=== PATIENT | female | born 1975 | race Caucasian/White ===

== ENCOUNTER 2019-06-06 10:05 | Emergency (ER) | payer BC ==
[2019-06-06] MEDS ORDERED: SODIUM CHLORIDE 0.9% 1,000 ML IV STA (10:59)
[2019-06-06] MEDS ORDERED: ONDANSETRON 4 MG/2 ML VIAL IVP STA (10:59)
[2019-06-06] MEDS ORDERED: KETOROLAC 30 MG/ML 1 ML VIAL IVP STA (10:59)
--- NOTE | 2019-06-06 11:11 | ED ---
Abdominal Pain HPI - General Chief Complaint: Abdominal Pain Stated Complaint: Abdominal pain Time Seen by Provider: 06/06/19 10:42 Source: patient Mode of arrival: ambulatory Limitations: no limitations - History of Present Illness Initial Comments: Patient is a 43-year-old female presents emergency Department with chief complaint of right lower quadrant abdominal pain. Patient reports she developed a sudden onset of right lower quadrant abdominal pain yesterday which she was able to control somewhat with ibuprofen. Patient reports she woke up this morning and pain continued. She states the pain is waxing and waning and sharp in nature. She does report nausea but no vomiting. Does report decreased appetite. Denies any diarrhea or constipation. States the pain is not related to by mouth intake. Denies increased urgency or frequency or dysuria. Denies hematuria, hematochezia or melena. States she went to the primary care who sent her to the ED for CT imaging to rule out appendicitis. Denies back pain chest pain or shortness of breath. - Related Data Allergies Allergy/AdvReac Type Severity Reaction Status Date / Time No Known Allergies Allergy Verified 06/06/19 10:29 Review of Systems ROS Statement: Those systems with pertinent positive or pertinent negative responses have been documented in the HPI. ROS Other: All systems not noted in ROS Statement are negative. Past Medical History Past Medical History: Hyperlipidemia, Thyroid Disorder Additional Past Medical History / Comment(s): hypothyroidism migraines History of Any Multi-Drug Resistant Organisms: None Reported Past Surgical History: Back Surgery, Section Past Psychological History: Anxiety, Depression Smoking Status: Current every day smoker Past Alcohol Use History: Occasional Past Drug Use History: None Reported General Exam Limitations: no limitations General appearance: alert, in no apparent distress Head exam: Present: atraumatic, normocephalic, normal inspection Eye exam: Present: normal appearance Pupils: Present: normal accommodation ENT exam: Present: normal exam, normal oropharynx, mucous membranes moist, TM's normal bilaterally, normal external ear exam Neck exam: Present: normal inspection, full ROM Respiratory exam: Present: normal lung sounds bilaterally Cardiovascular Exam: Present: regular rate, normal rhythm, normal heart sounds GI/Abdominal exam: Present: soft, tenderness (McBurney point tenderness. Positive obturator and psoas. Negative Rovsing. Right lower quadrant tenderness.). Absent: distended, guarding, rebound, rigid, mass, bruit, pulsatile mass, hernia Extremities exam: Present: normal inspection, full ROM Back exam: Present: normal inspection, full ROM. Absent: CVA tenderness (R), CVA tenderness (L) Neurological exam: Present: alert, oriented X3 Psychiatric exam: Present: normal affect, normal mood Skin exam: Present: warm, dry, intact, normal color Course Vital Signs 06/06/19 06/06/19 06/06/19 10:24 10:30 11:30 Temperature 98.5 F Pulse Rate 88 70 Respiratory 18 20 16 Rate Blood Pressure 127/80 122/69 O2 Sat by Pulse 98 100 Oximetry 06/06/19 06/06/19 12:00 12:22 Temperature 98.2 F Pulse Rate 68 75 Respiratory 16 16 Rate Blood Pressure 134/60 111/68 O2 Sat by Pulse 100 100 Oximetry Medical Decision Making - Medical Decision Making Patient is a 43-year-old female presenting to the emergency department with chief complaint of right lower quadrant pain. Patient sent to the ED from PCP to rule out appendicitis. On exam patient does have all signs positive appendicitis except for Rovsing. Does have nausea no vomiting diarrhea. CBC shows normal white count. CMP unremarkable. UA shows no signs of urinary tract infection. CT of abdomen and pelvis shows no signs of acute appendicitis. Hepatomegaly noted. Patient was given IV fluids, Zofran and Toradol. Reevaluation patient does report improvement in her symptoms. She informed me after that recently they have been moving to a different house in [place]. I do suspect this is more muscular skeletal. Patient advised to follow-up with primary care. Advised to alternate between Tylenol and Motrin for pain control. Advised to return to emergency department if symptoms worsen. - Lab Data Result diagrams: 06/06/19 11:05 06/06/19 11:05 Lab Results 06/06/19 06/06/19 06/06/19 Range/Units 11:05 11:05 11:05 WBC 9.5 (3.8-10.6) k/uL RBC 4.80 (3.80-5.40) m/uL Hgb 14.8 (11.4-16.0) gm/dL Hct 42.4 (34.0-46.0) % MCV 88.4 (80.0-100.0) fL MCH 30.9 (25.0-35.0) pg MCHC 35.0 (31.0-37.0) g/dL RDW 12.2 (11.5-15.5) % Plt Count 308 (150-450) k/uL Neutrophils % 68 % Lymphocytes % 21 % Monocytes % 7 % Eosinophils % 2 % Basophils % 1 % Neutrophils # 6.5 (1.3-7.7) k/uL Lymphocytes # 2.0 (1.0-4.8) k/uL Monocytes # 0.7 (0-1.0) k/uL Eosinophils # 0.2 (0-0.7) k/uL Basophils # 0.1 (0-0.2) k/uL Sodium 140 (137-145) mmol/L Potassium 4.1 (3.5-5.1) mmol/L Chloride 109 H (98-107) mmol/L Carbon Dioxide 23 (22-30) mmol/L Anion Gap 8 mmol/L BUN 9 (7-17) mg/dL Creatinine 0.73 (0.52-1.04) mg/dL Est GFR (CKD-EPI)AfAm >90 (>60 ml/min/1.73 sqM) Est GFR (CKD-EPI)NonAf >90 (>60 ml/min/1.73 sqM) Glucose 91 (74-99) mg/dL Calcium 9.0 (8.4-10.2) mg/dL Total Bilirubin 0.4 (0.2-1.3) mg/dL AST 24 (14-36) U/L ALT 18 (4-34) U/L Alkaline Phosphatase 63 (38-126) U/L Total Protein 6.8 (6.3-8.2) g/dL Albumin 4.0 (3.5-5.0) g/dL Amylase 48 (30-110) U/L Lipase 92 (23-300) U/L Urine Color Light Yellow Urine Appearance Cloudy H (Clear) Urine pH 6.5 (5.0-8.0) Ur Specific Carlyle 1.008 (1.001-1.035) Urine Protein Negative (Negative) Urine Glucose (UA) Negative (Negative) Urine Ketones Negative (Negative) Urine Blood Small H (Negative) Urine Nitrite Negative (Negative) Urine Bilirubin Negative (Negative) Urine Urobilinogen <2.0 (<2.0) mg/dL Ur Leukocyte Esterase Small H (Negative) Urine RBC 1 (0-5) /hpf Urine WBC 3 (0-5) /hpf Ur Squamous Epith Cells 12 H (0-4) /hpf Urine Bacteria Occasional H (None) /hpf Urine Mucus Rare H (None) /hpf Urine Sperm Few H (None) /hpf Disposition Clinical Impression: Right lower quadrant pain, Abdominal wall strain Disposition: HOME SELF-CARE Condition: Stable Instructions (If sedation given, give patient instructions): Core Strengthening Exercises (ED), Abdominal Pain (ED) Additional Instructions: Please follow up with primary care. Alternate between Tylenol and Motrin for pain control. Return to emergency department if symptoms worsen. Is patient prescribed a controlled substance at d/c from ED?: No Referrals: Claudine Hewitt DO [Primary Care Provider] - 1-2 days Time of Disposition: 12:45
[2019-06-06 11:24] LABS: ALT 18 U/L (4-34); AST 24 U/L (14-36); African American GFR (CKD) >90 (>60 ml/min/1.73 sqM); Alkaline Phosphatase 63 U/L (38-126); Amylase 48 U/L (30-110); Anion Gap 8 mmol/L; Blood Urea Nitrogen 9 mg/dL (7-17); Carbon Dioxide 23 mmol/L (22-30); Chloride 109 mmol/L (98-107); Glucose 91 mg/dL (74-99); Non-African American GFR(CKD) >90 (>60 ml/min/1.73 sqM); Potassium 4.1 mmol/L (3.5-5.1); Sodium 140 mmol/L (137-145); Total Bilirubin 0.4 mg/dL (0.2-1.3); Total Protein 6.8 g/dL (6.3-8.2)
[2019-06-06 11:37] LABS: Appearance,Urine Cloudy (Clear); Bacteria,Urine Occasional /hpf; Bilirubin,Urine Negative (Negative); Blood,Urine Small (Negative); Color,Urine Light Yellow; Glucose,Urine (UA) Negative (Negative); Ketones,Urine Negative (Negative); Leukocyte Esterase,Urine Small (Negative); Mucus,Urine Rare /hpf; Nitrite,Urine Negative (Negative); PH, Urine 6.5 (5.0-8.0); Protein,Urine Negative (Negative); RBC,Urine 1 /hpf (0-5); Specific Gravity,Urine 1.008 (1.001-1.035); Sperm,Urine Few /hpf; Squamous Epithelial Cell,Urine 12 /hpf (0-4); Urobilinogen,Urine <2.0 mg/dL (<2.0); WBC,Urine 3 /hpf (0-5)
[2019-06-06 12:09] LABS: Basophils # (A) 0.1 k/uL (0-0.2); Basophils % (A) 1 %; Eosinophils # (A) 0.2 k/uL (0-0.7); Eosinophils % (A) 2 %; HCT 42.4 % (34.0-46.0); HGB 14.8 gm/dL (11.4-16.0); Lymphocytes % (A) 21 %; MCH 30.9 pg (25.0-35.0); MCV 88.4 fL (80.0-100.0); Mean Platelet Volume 7.4; Monocytes # (A) 0.7 k/uL (0-1.0); Monocytes % (A) 7 %; Neutrophils # (A) 6.5 k/uL (1.3-7.7); Neutrophils % (A) 68 %; Platelet Count 308 k/uL (150-450); RDW 12.2 % (11.5-15.5); WBC 9.5 k/uL (3.8-10.6)
--- NOTE | 2019-06-06 12:09 | CT ---
EXAMINATION TYPE: CT abdomen pelvis wo con DATE OF EXAM: 06/06/2019 COMPARISON: NONE HISTORY: Right lower quadrant pain CT DLP: 905.6 mGycm Automated exposure control for dose reduction was used. FINDINGS: There is some dependent atelectasis in the dependent portions of the lungs. There is no ple ural or pericardial fluid. The heart is not enlarged Within the abdomen, the liver, spleen and gallbladder are normal. Both adrenal glands are normal. No evidence of hydronephrosis or nephrolithiasis. The pancreas is unremarkable. There is no significant retroperitoneal, iliac or inguinal adenopathy. The bladder is unremarkable. There is an IUCD within the uterus. Both ovaries appear normal. There is no significant diverticular change and there is no radiographic evidence of diverticulitis. The appendix is unremarkable. Small bowel loops are normal caliber. There is no free fluid and no free air identified. There is degenerative disc disease and a vacuum phenomena present at L3-4. IMPRESSION: 1. NORMAL APPENDIX. 2. NO EVIDENCE OF NEPHROLITHIASIS OR HYDRONEPHROSIS. 3. NO ACUTE INFLAMMATORY ABNORMALITY. 4. DEGENERATIVE DISC DISEASE, L3-4.
[2019-06-06 12:24] VITALS: BP 111/68; PULSE 75; RESP 16; TEMP 98.2
== END 2019-06-06 12:55 | disposition home or self-care (01) ==
LOC: EC 10:05
DX: S39.011A Strain of muscle, fascia and tendon of abdomen, initial encounter (principal); R16.0 Hepatomegaly, not elsewhere classified; F17.200 Nicotine dependence, unspecified, uncomplicated; X50.9XXA Other and unspecified overexertion or strenuous movements or postures, initial encounter
CPT/HCPCS: 36415; 80053; 82150; 83690; 85025; 81001; 74176; 96374; 96375; 96361 ×2; 99284; J2405; J1885

== ENCOUNTER → 2021-03-25 | Outpatient (CLI) | payer BC ==
[2021-03-25 17:20] LABS: Basophils # (A) 0.08 X 10*3/uL (0.00-0.10); Basophils % (A) 0.7 %; Eosinophils # (A) 0.25 X 10*3/uL (0.04-0.35); Eosinophils % (A) 2.2 %; HCT 41.7 % (37.2-46.3); HGB 14.5 g/dL (12.0-15.0); Lymphocytes # (A) 2.02 X 10*3/uL (0.90-5.00); Lymphocytes % (A) 17.6 %; MCH 32.2 pg (27.0-32.0); MCHC 34.8 g/dL (32.0-37.0); MCV 92.5 fL (80.0-97.0); Mean Platelet Volume 10.4 fL (9.5-12.2); Monocytes # (A) 0.92 X 10*3/uL (0.20-1.00); Neutrophils # (A) 8.06 X 10*3/uL (1.80-7.70); Neutrophils % (A) 70.4 %; Platelet Count 318 X 10*3/uL (140-440); RBC 4.51 X 10*6/uL (4.10-5.20); WBC 11.46 X 10*3/uL (4.50-10.00)
[2021-03-25 18:05] LABS: ALT 15 U/L (8-44); AST 17 U/L (13-35); African American GFR (CKD) 119.2 (60.0-200.0); Albumin 4.1 g/dL (3.8-4.9); Albumin/Globulin Ratio 1.85 (1.60-3.17); Alkaline Phosphatase 72 U/L (41-126); BUN/Creat Ratio 11.89 Ratio (12.00-20.00); Blood Urea Nitrogen 8.4 mg/dL (9.0-27.0); Calcium 9.1 mg/dL (8.7-10.3); Carbon Dioxide 22.9 mmol/L (21.6-31.8); Chloride 104 mmol/L (96-109); Chol/HDL Ratio 4.09 Ratio; Globulin 2.2 g/dL (1.6-3.3); Glucose 98 mg/dL (70-110); LDL Cholesterol,Calculated 74.5 mg/dL (0.0-131.0); Non-African American GFR(CKD) 102.9 (60.0-200.0); Potassium 4.3 mmol/L (3.5-5.5); Sodium 139 mmol/L (135-145); Total Protein 6.2 g/dL (6.2-8.2)
== END | disposition home or self-care (01) ==
LOC: LABWHC1 10:47
PROVIDERS: ATTEND Family Medicine
DX: I10 Essential (primary) hypertension (principal); E78.5 Hyperlipidemia, unspecified; R53.83 Other fatigue; R51.9 Headache, unspecified
CPT/HCPCS: 36415; 80053; 80061; 84443; 85025